=== PATIENT | female | born 1985 | race Hispanic/Latino ===

== ENCOUNTER 2019-08-29 12:03 | Inpatient (IN) | payer OTHER ==
[~2019-08-29] VITALS: Ht 157.5 cm; Wt 61.7 kg
[2019-08-29] MEDS ORDERED: LACTATED RINGERS 1000ML 1,000 ML IV PRN (12:46)
[2019-08-29] MEDS ORDERED: OXYTOCIN 10 USP UNITS/ML 20 UNIT in LACTATED RINGERS 1000ML 1,000 ML IV SCH (13:00)
[2019-08-29 13:03] LABS: HEMATOCRIT 35.3 % (36-48); MEAN CORPUSCULAR HEMOGLOBIN 32.9 pg (27.0-33.0); MEAN CORPUSCULAR HGB CONC 34.3 g/dL (32.0-36.0); MEAN CORPUSCULAR VOLUME 95.9 fL (79-99); PLATELET COUNT (AUTO) 185 K/uL (130-400); RED BLOOD CELL COUNT(AUTO) 3.68 MIL/uL (4.00-5.50); RED CELL DISTRIBUTION WIDTH 13.5 % (11.0-15.5); WHITE BLOOD COUNT (AUTO) 9.5 K/uL (4.8-10.8)
[2019-08-29 13:09] LABS: APPEARANCE,URINE Cloudy (CLEAR); BILIRUBIN,URINE Negative (NEGATIVE); COLOR,URINE Yellow (YELLOW); GLUCOSE, URINE (UA) Negative (NEGATIVE); KETONES,URINE Negative (NEGATIVE); LEUKOCYTE ESTERASE ,URINE Moderate (NEGATIVE); NITRATE,URINE Negative (NEGATIVE); OCCULT BLOOD,URINE Small (NEGATIVE); PH,URINE 7.5 (5.0-8.0); PROTEIN,URINE Negative (NEGATIVE)
[2019-08-29 13:34] LABS: BACTERIA,URINE Few /HPF (None Seen); RBC,URINE 0-1 /HPF (0-1); SQUAMOUS EPITHELIAL CELL,UR Rare /HPF (0-2)
[2019-08-29] MEDS ORDERED: IBUPROFEN 600 MG TABLET PO PRN (15:30)
[2019-08-29] MEDS ORDERED: WITCH HAZEL 1 PAD TP PRN (15:30)
[2019-08-29] MEDS ORDERED: BENZOCAINE/LANOLIN/ALOE VERA 60 ML AEROSOL TP PRN (15:30)
[2019-08-29] MEDS ORDERED: ACETAMINOPHEN 325 MG TAB PO PRN (15:30)
[2019-08-29] MEDS ORDERED: MEASLES/MUMPS/RUBELLA VACCINE, LIVE 0.5 ML/VIAL SQ PRN (15:30)
[2019-08-29] MEDS ORDERED: DIPH,PERTUSS(ACELL),TET VAC/PF 0.5 ML VIAL IM PRN (15:30)
[2019-08-29] MEDS ORDERED: LANOLIN 30GM OINTMENT TP PRN (15:30)
[2019-08-29] MEDS ORDERED: ACETAMINOPHEN-CODEINE 300/30MG TAB PO PRN (15:30)
[2019-08-29] MEDS ORDERED: OXYTOCIN-LR 20 UNITS/1000 ML 1,000 ML IV SCH (15:30)
[2019-08-29] MEDS ORDERED: OXYTOCIN-LR 20 UNITS/1000 ML 1,000 ML IV ONE (15:31)
[2019-08-29 16:49] VITALS: BP 114/67
[2019-08-29] MEDS ORDERED: PREN-154 PO (17:06)
[2019-08-29] MEDS ORDERED: FERR-82 PO (17:06)
[2019-08-29 19:36] VITALS: BP 100/68
[2019-08-29] MEDS: DOCUSATE SODIUM 100 MG CAP PO SCH (20:24)
[2019-08-29 23:35] VITALS: BP 90/52
[2019-08-30 03:25] VITALS: BP 107/68
[2019-08-30 05:50] LABS: HEMATOCRIT 29.5 % (36-48); MEAN CORPUSCULAR HEMOGLOBIN 33.6 pg (27.0-33.0); MEAN CORPUSCULAR HGB CONC 34.6 g/dL (32.0-36.0); PLATELET COUNT (AUTO) 162 K/uL (130-400); RED BLOOD CELL COUNT(AUTO) 3.04 MIL/uL (4.00-5.50); RED CELL DISTRIBUTION WIDTH 13.3 % (11.0-15.5); WHITE BLOOD COUNT (AUTO) 10.4 K/uL (4.8-10.8)
[2019-08-30 06:09] LABS: HEPATITIS Bs ANTIGEN SCREEN P Negative (Negative)
[2019-08-30 07:22] VITALS: BP 99/66
[2019-08-30] MEDS: DOCUSATE SODIUM 100 MG CAP PO SCH (08:53)
[2019-08-30 11:55] VITALS: BP 90/67
[2019-08-30 14:48] VITALS: BP 115/66
== END 2019-08-30 18:35 | disposition home or self-care (01) | DRG 807 ==
LOC: OBSVTOIN 12:03 → LDH 12:03 → WSH 16:45
PROVIDERS: ADMIT Obstetrics & Gynecology; ATTEND Obstetrics & Gynecology
PROC: 10E0XZZ Delivery of Products of Conception, External Approach (ICD-10-PCS; principal; 2019-08-29)
PROC: 10907ZC Drainage of Amniotic Fluid, Therapeutic from Products of Conception, Via Natural or Artificial Opening (ICD-10-PCS; 2019-08-29)
PROC: 3E0234Z Introduction of Serum, Toxoid and Vaccine into Muscle, Percutaneous Approach (ICD-10-PCS; 2019-08-29)
DX: O80 Encounter for full-term uncomplicated delivery (principal); Z37.0 Single live birth; Z3A.37 37 weeks gestation of pregnancy; Z23 Encounter for immunization
CPT/HCPCS: 36415; 81001; 85027; 86592; 86850; 86900; 86901; 87340; A4351; G0378; J2590